=== PATIENT | female | born 1980 | race Caucasian/White ===

== ENCOUNTER → 2018-03-22 15:58 | Outpatient (CLI) | payer MEDICAID, SELFPAY | PROVIDERS: Family Provider Family Medicine; PCP Family Medicine; Visit Provider Otolaryngology Otolaryngology/Facial Plastic Surgery | DX: J02.9 Acute pharyngitis, unspecified (principal) | CPT/HCPCS: 87070 ==

== ENCOUNTER 2018-05-02 06:33 | Day surgery (SDC) | payer MEDICAID, SELFPAY ==
[2018-05-02] VITALS (8 sets, daily range): BP systolic 113–143; BP diastolic 72–97; PULSE 60–95; RESP 14–18; TEMP 36.2–36.7; O2SAT 92–100; BMI 21.4
--- NOTE | 2018-05-02 | T&A_PTH ---
PATIENT: RAINER LAW LOC: [facility] [place] U#:[id number] AGE/SX: 37/F ROOM: RE05/02/[address]: Jose Juan Mosqueda MD : [id number] BED: DIS: 05/02/2018 SPEC #: [id number] RECD: 05/02/18 11:21 STATUS: MARLINE AMIRA #: [id number] ISACC: 05/02/18 00:[address]: Jose Juan Mosqueda DEPT: SURGICAL PATHOLOGY RECD BY: Claus Joiner ENTERED: 05/02/18 11:22 SP TYPE: T & A CHRISTINA DR: Dr. Rhaul Talbert MD Tissues: Tonsils and adenoids, NOS Procedures: Surgery Specimen Level III HEADER OPERATION: Tonsillectomy and adenoidectomy PRE-OP DIAGNOSIS: Chronic tonsillitis TISSUE SUBMITTED: Tonsils, tie on right, adenoids MICROSCOPIC DIAGNOSIS Bilateral tonsils and adenoids: Reactive lymphoid hyperplasia, consistent with chronic tonsillitis. Focal actinomyces colonization. :colton 05/03/18 MICROSCOPIC DESCRIPTION Slides are reviewed. GROSS DESCRIPTION Received in formalin labeled with the patient's name and designated tonsils and adenoids - tie on right. The specimen consists of two tonsils that in aggregate weigh 6.1 gm. The right tonsil has a tie on it. The right tonsil measures 3 x 1.5 x 1.2 cm and the left tonsil measures 3 x 1.5 x 1 cm. Both tonsils are similar in appearance. The external surfaces are pink-jesus, smooth, glistening and somewhat lobulated. Focally they are hemorrhagic, granular and bear cautery artifact. Serial cross sections through the tonsils reveal normal tonsillar architecture. Also received are multiple irregular fragments of pink-jesus, smooth, glistening and somewhat lobulated soft tissue that in aggregate weigh 1 gm and in aggregate measure 2 x 1.5 x 0.3 cm. Final Rail Cutter sections are submitted as follows: 1 - right tonsil, adenoids, 2 - left tonsil, adenoids. The entire adenoid tissue is submitted. / BERNARDO:colton 05/02/18 TC:3 CPT: 08581 x2
[2018-05-02 06:59] LABS: Hematocrit 41.8 % (37-47); Mean Corp Hgb Conc 33.5 g/gl (32-36); Mean Corpuscular Volume 92.7 fL (81-99); Mean Platelet Vol. 11.5 fl (6.2-12.0); Platelet Count 183 K/mm3 (150-450); RBC Distribution Width SD 39.9 fl (35.1-43.9); Red Blood Count 4.51 M/mm3 (4.2-5.4); White Blood Count 7.2 K/mm3 (4.4-11.0)
[2018-05-02 07:04] LABS: AST(SGOT) 17 U/L (15-37); Alanine Aminotransfer ALT/SGPT 26 U/L (13-56); Albumin, Serum 3.9 g/dL (3.2-5.0); Alkaline Phosphatase 92 U/L (45-117); Globulin 3.1 g/dL (2.2-4.2); Scan Indicated on CBC? Y/N NO
[2018-05-02 07:06] LABS: Internal QC Validated? YES +Cl - CLEAR BKGD; Pregnancy, Urine Negative Negative
[2018-05-02 07:07] LABS: Prothrombin Time (Protime)PT. 12.7 SECONDS (11.7-14.9)
[2018-05-02 07:08] LABS: Partial Thromboplast Time 31.4 Seconds (24.1-36.2)
[2018-05-02] MEDS: Oxymetazoline 0.05% 1 SPRAY SPRAY.BTL 15 SPRAY (08:48)
--- NOTE | 2018-05-02 09:46 | DCINST_ITS ---
Discharge Diet: Soft diet - for 2 weeks, be sure to drink extra liquids. Discharge Activity: Return to Normal Activity - Rest for 10 days Additional Activity Instructions:: Use tylenol (with or without the hydrocodone ) every 4 hours for the first 7-10 days then as needed. Allergies/Adverse Reactions: Allergies metronidazole [From Flagyl] Adverse Reaction (Verified 04/29/18 08:25) Nausea/Vom/Diarrhea SEASONAL Allergy (Mild, Uncoded 04/29/18 08:25) Other Medications to take at Discharge Acetaminophen [Tylenol Extra Strength] 500 - 1,000 mg PO Q6H PRN PRN 04/29/18 Albuterol IH (ProAir) [Proair Hfa (SP)Vent Pts] 1 - 2 puff INHALATION Q6H PRN PRN 04/29/18 Clonazepam [Klonopin] 0.5 mg PO QHS PRN PRN 05/02/18 busPIRone [Buspar] 15 mg PO TID PRN 05/02/18 Primary Care Physician: Rahul Talbert MD [Primary Care Provider] - Please Follow Up With: Jose Juan Mosqueda MD - [phone] When: in 1-2 weeks.
--- NOTE | 2018-05-02 10:27 | PCM.OP.BLANK ---
Operative Report Date of Procedure: 05/02/18 Preoperative diagnosis: Chronic adenotonsillitis Postoperative diagnosis: Same Procedure: Tonsillectomy and adenoidectomy Anesthesia: General endotracheal per Lorna Hernandez CRNA Details of procedure: The patient was transported to the operating room and placed on the OR table in the supine position. After the administration of adequate general endotracheal anesthesia the patient was appropriately positioned, eyes were treated and taped closed. A head drape was applied. The Tong-Simone mouthgag was introduced into the oral cavity extended and suspended from a Dickens stand. Inspection and palpation were negative for any signs of submucosal clefting of the palate. Small amount of adenoidal tissue was still remaining and tonsils were only moderately hyperplastic but did have debris consistent with her history of tonsil stones. No acute inflammatory signs were evident. With adenoid curette the adenoidal tissue was excised following which the nasal cavity was irrigated with saline exhibiting clear passage from the nose into the nasopharynx on each side. Mirror exam confirmed adequate removal of the adenoidal tissue and packing was placed into the nasopharynx. The right tonsil was then grasped with a tenaculum. With #12 sickle blade mucosal incision was created along the right anterior tonsillar pillar. With Nelson dissector, curved Metzenbaum scissors, in both blunt and sharp fashion, the tonsil was excised. The bayonet Bovie was utilized for hemostasis throughout the dissection as well as for electrodissection. The left tonsil was then removed in similar fashion. The oral cavity was irrigated with saline suctioned dry and hemostasis was obtained with electrocautery. The nasopharyngeal packing was subsequently removed and when it was evident no further bleeding was present, the Tong-Simone mouthgag was relaxed, withdrawn, and the procedure terminated. The patient tolerated the procedure well, did not sustain any intraoperative anesthetic or surgical complication, was extubated in the operating room and taken to the PACU where she was noted to be in satisfactory condition. Jose Juan Mosqueda MD
[2018-05-02] MEDS: Lactated Ringers 1,000 ML 100 ML IV (10:53)
[2018-05-02] MEDS: HYDROCODONE/APAP 7.5-325/15ML 15 ML UDC 10 ML PO (11:53)
== END 2018-05-02 12:13 | disposition home or self-care (01) ==
LOC: SDC 06:34 → AC 06:37
PROVIDERS: Family Provider Family Medicine; PCP Family Medicine; Visit Provider Otolaryngology Otolaryngology/Facial Plastic Surgery
PROC: (CPT 42821; principal; 2018-05-02 07:55)
DX: J35.03 Chronic tonsillitis and adenoiditis (principal); J45.909 Unspecified asthma, uncomplicated; G25.81 Restless legs syndrome; Z86.2 Personal history of diseases of the blood and blood-forming organs and certain disorders involving the immune mechanism; F17.200 Nicotine dependence, unspecified, uncomplicated
CPT/HCPCS: 00170; 42821; 36415; 80076; 81025; 85027; 85610; 85730; 88304; J7120; J2405